=== PATIENT | female | born 1960 | race Caucasian/White ===

== ENCOUNTER 2017-10-26 12:55 | Emergency (ER) | payer OTHER ==
[~2017-10-26] VITALS: Ht 175.3 cm; Wt 56.8 kg
[~2017-10-26 12:55] MED LIST: ASPI325T PO; AZO95TAB3 PO; BACT800T5 PO
[2017-10-26 13:03] VITALS: BP 126/76; PULSE 82; RESP 14; TEMP 97.6; O2SAT 98
--- NOTE | 2017-10-26 14:01 | PD ---
HPI Chief Complaint: Complaint Time Seen by Provider: 13:31 Travel History International Travel<30 days: No Contact w/Intl Traveler<30days: No Traveled to known affect area: No History of Present Illness HPI 57-year-old female with a history of recurrent urinary tract infections presents emergency department complaining of dysuria that is been present since Saturday. Says that she started developing a burning and took an Azo Saturday. In addition, she took some leftover antibiotics but her symptoms have not resolved. She denies nausea, vomiting, diarrhea, fever, chills, abdominal pain , back pain. Denies hematuria. Says she has had extensive workups previously and at this point she gets approximately 1 urinary tract infections per year. Says this feels like her other urinary tract infections. PFSH Past Medical History Diminished Hearing: No Genitourinary: Yes (chronic uti) ?: Not Menopausal: Yes Tubal Ligation: Yes (1983) Past Surgical History Surgical History: No Previous Surgery Social History Alcohol Use: No Tobacco Use: Yes (one ppd) Substance Use: No Allergies-Medications (Allergen,Severity, Reaction): Coded Allergies: No Known Allergies (Unverified Adverse Reaction, Unknown, 10/26/17) Reported Meds & Prescriptions Reported Meds & Active Scripts Active Bactrim DS (Sulfamethoxazole-Trimethoprim) 800-160 Mg Tab 1 Tab PO BID Bactrim DS (Sulfamethoxazole-Trimethoprim DS) 1 Tab Tab 1 Tab PO BID Reported Aspirin 325 Mg Tab (Aspirin) 325 Mg Tab 325 Mg PO HS Azo-Tabs (Phenazopyridine HCl) 95 Mg Tab 95 Mg PO Q8H PRN Review of Systems Except as stated in HPI: all other systems reviewed are Neg Physical Exam Narrative GENERAL: Well-nourished, well-developed patient, in NAD SKIN: Focused skin assessment warm/dry. No rashes or lesions. HEAD: Normocephalic. Atraumatic. EYES: No scleral icterus. No injection or drainage. THROAT: Airway is patent. NECK: Supple, trachea midline. No JVD or lymphadenopathy. No meningismus. CARDIOVASCULAR: Regular rate and rhythm without murmurs, gallops, or rubs. RESPIRATORY: Breath sounds equal bilaterally. No accessory muscle use. No wheezes, rales, or rhonchi MUSCULOSKELETAL: No cyanosis, or edema. BACK: Nontender without obvious deformity. No CVA tenderness. Data Data Last Documented VS Vital Signs Date Time Temp Pulse Resp B/P (MAP) Pulse Ox O2 Delivery O2 Flow Rate FiO2 10/26/17 13:03 97.6 82 14 126/76 (93) 98 Orders Orders Urinalysis - C+S If Indicated (10/26/17 13:32) Urine Culture (10/26/17 13:45) Ed Discharge Order (10/26/17 14:40) Labs Laboratory Tests Test 10/26/17 13:45 Urine Color LIGHT-BROWN Urine Turbidity CLOUDY Urine pH 6.5 Urine Specific [place] 1.020 Urine Protein 30 mg/dL Urine Glucose (UA) NEG mg/dL Urine Ketones 10 mg/dL Urine Occult Blood MOD Urine Nitrite NEG Urine Bilirubin NEG Urine Urobilinogen 4.0 MG/DL Urine Leukocyte Esterase LARGE Urine RBC /hpf Urine WBC /hpf Urine WBC Clumps MANY Urine Bacteria FEW /hpf Microscopic Urinalysis Comment CULTURE INDICATED MDM Medical Decision Making Medical Screen Exam Complete: Yes Emergency Medical Condition: Yes Differential Diagnosis UTI, cystitis, pyelonephritis Narrative Course 57-year-old female with a history of recurrent urinary tract infections presents emergency department complaining of dysuria that is been present since Saturday. Says that she started developing a burning and took an Azo Saturday. In addition, she took some leftover antibiotics but her symptoms have not resolved. She denies nausea, vomiting, diarrhea, fever, chills, abdominal pain , back pain. Denies hematuria. Says she has had extensive workups previously and at this point she gets approximately 1 urinary tract infections per year. Says this feels like her other urinary tract infections. Vital signs stable. Physical exam findings are essentially unremarkable. No CVA tenderness. Urinalysis suggestive of urinary tract infection. She will be discharged with Bactrim. Advised to follow-up with a primary care physician within 2-3 days. Diagnosis Primary Impression: UTI (urinary tract infection) Qualified Codes: N30.00 - Acute cystitis without hematuria Referrals: Primary Care Physician Urologist Patient Instructions: Dysuria (ED), General Instructions Additional Instructions: Ensure adequate intake and proper nutrition. Take all antibiotics as prescribed to reduce complications. If you develop fever, chills, nausea, vomiting return to the emergency department at this may be a severe disease process. Scripts Sulfamethoxazole-Trimethoprim (Bactrim DS) 800-160 Mg Tab 1 TAB PO BID for Infection, #14 TAB 0 Refills Prov: Krzysztof Valverde MD 10/26/17 Disposition: 01 DISCHARGE HOME Condition: Stable Freda Cruz October 26, 2017 14:01
[2017-10-26 14:17] LABS: BACTERIA, URINE FEW /hpf; BILIRUBIN, URINE NEG (NEG); BLOOD, URINE MOD (NEG); GLUCOSE,URINE NEG (NEG); KETONE, URINE 10 mg/dL (NEG); NITRITE,URINE NEG (NEG); PH, URINE 6.5 (5.0-8.5); URINE LEUKOCYTE ESTERASE LARGE (NEG); WHITE BLOOD CELL CLUMPS MANY
[2017-10-26 14:20] LABS: URINE COLOR LIGHT-BROWN (YELLW/STRAW)
[2017-10-26] MEDS ORDERED: BACT800T5 PO (14:38)
== END 2017-10-26 15:06 | disposition home or self-care (01) ==
LOC: NEPD 12:55
DX: N30.00 Acute cystitis without hematuria (principal); F17.200 Nicotine dependence, unspecified, uncomplicated
CPT/HCPCS: 81001; 87086; 99283